=== PATIENT | female | born 1955 | race Caucasian/White ===

== ENCOUNTER 2025-04-01 08:28 | Emergency (ER) | payer MEDICARE ==
[~2025-04-01] VITALS: Ht 160 cm; Wt 78.5 kg
[2025-04-01] MEDS ORDERED: IBUPROFEN 600 MG TABLET ONE (08:52)
[2025-04-01] MEDS ORDERED: ACETAMINOPHEN ES 500 MG TABLET ONE (08:52)
[2025-04-01] MEDS: ACETAMINOPHEN ES 500 MG TABLET PO ONE (09:13)
[2025-04-01] MEDS: IBUPROFEN 600 MG TABLET PO ONE (09:13)
[2025-04-01 10:12] VITALS: BP 155/77; TEMP 98; O2SAT 98
== END 2025-04-01 10:12 | disposition home or self-care (01) ==
LOC: ER 08:42
DX: S63.502A Unspecified sprain of left wrist, initial encounter (principal); W01.0XXA Fall on same level from slipping, tripping and stumbling without subsequent striking against object, initial encounter; Y93.89 Activity, other specified; Y92.89 Other specified places as the place of occurrence of the external cause; Y99.9 Unspecified external cause status
CPT/HCPCS: 73110